=== PATIENT | male | born 1975 | race Caucasian/White ===

== ENCOUNTER → 2022-03-12 | Day surgery (SDC) | payer OTHER ==
[~2022-03-12] VITALS: Ht 188 cm; Wt 96.2 kg
[~2022-03-12] MED LIST: IBUPROFEN800 MG PO; NEXIUM20 MG PO; SUBOXONE 2 MG-1 EACH SL; VITAMIN C100 MG PO; VITAMIN D-40010 MCG PO; [UNRECOGNIZED DRUG - OTHER]
== END | disposition home or self-care (01) ==
LOC: OR 05:46
DX: K42.9 Umbilical hernia without obstruction or gangrene (principal); K21.9 Gastro-esophageal reflux disease without esophagitis; M19.90 Unspecified osteoarthritis, unspecified site; F17.229 Nicotine dependence, chewing tobacco, with unspecified nicotine-induced disorders; F41.9 Anxiety disorder, unspecified
CPT/HCPCS: C1781; J0690; J1100; J1170; J1885; J2001; J2250; J2405; J2704; J3010